=== PATIENT | female | born 1975 | race Caucasian/White ===

== ENCOUNTER 2022-06-05 18:35 | Emergency (ER) | payer OTHER, MEDICAID, SELFPAY ==
[2022-06-05 18:50] VITALS: PULSE 95; O2SAT 99
[2022-06-05 18:51] VITALS: BP 140/83; PULSE 97; O2SAT 99
[2022-06-05 18:53] VITALS: BP 140/83; PULSE 80; RESP 19; TEMP 36.8; O2SAT 95; BMI 21.4
[2022-06-05 19:00] VITALS: PULSE 86; O2SAT 97
[2022-06-05 19:01] VITALS: BP 125/70; PULSE 87; O2SAT 98
--- NOTE | 2022-06-05 19:01 | ED.UPPEXIN ---
HPI - Extremity Injury (Upper) <Conor Frazier PA-C - Last Filed: 06/05/22 19:34> General Chief Complaint: Extremity Injury, Upper Stated Complaint: lt humeral fx Time Seen by Provider: 06/05/22 18:47 Source: patient Mode of arrival: Ambulatory History of Present Illness HPI narrative: This is the 47 year old female presents to the emergency department due to left upper extremity pain onset earlier this afternoon. Patient states that she was hiking and tripped and fell and slid 20 ft down a hill. She was seen by a previous provider for your ordered left shoulder x-rays and directed her to come to the emergency department. She denies any numbness in her left upper extremity and did not injure any other area of her body during the fall. She would not hit her head or lose consciousness. Related Data Previous Rx's Medication Instructions Recorded oxycodone 5 mg capsule 5 mg PO Q6H PRN pain 10 days #30 06/05/22 caps oxycodone 5 mg capsule 5 mg PO Q8H PRN pain 10 days #30 06/05/22 caps Allergies Allergy/AdvReac Type Severity Reaction Status Date / Time latex Allergy Mild Rash Verified 06/05/22 15:49 Review of Systems <Conor Frazier PA-C - Last Filed: 06/05/22 19:34> Review of Systems Narrative: GENERAL: Denies chills, fatigue, malaise, fever, sweats. HEENT: Denies sinus pain, ear pain, sore throat, difficulty swallowing, dizziness. RESPIRATORY: Denies dyspnea, cough, wheezing, hemoptysis, sputum. CARDIOVASCULAR: Denies chest pain, palpitations, orthopnea, edema, GASTROINTESTINAL: Denies nausea, vomiting, abdominal pain, diarrhea, constipation, melena. : Denies dysuria, frequency, incontinence, hematuria, urinary retention. MUSCULOSKELETAL: Left upper extremity pain SKIN: Denies rash, skin lesions, or other NEUROLOGIC: Denies weakness, headache, numbness, change in speech, confusion, seizures, incoordination. PSYCHIATRIC: No concerning psychosocial issues. 12 point review of systems is negative except for those stated above Patient History <Conor Frazier PA-C - Last Filed: 06/05/22 19:34> Social History Smoking Status: Former smoker Smoking Status: Former smoker tobacco type: cigarettes alcohol intake frequency: a few times a week Substance Use Type: does not use Exam <VASYL Baumann Last Filed: 06/05/22 19:34> Narrative Exam Narrative: GENERAL: Well-developed patient, in mild distress. HEAD: Atraumatic. Normocephalic. EYES: Pupils equal round and reactive. Extraocular motions intact. No scleral icterus. No injection or drainage. ENT: Nose without bleeding, purulent drainage. Throat without erythema, tonsillar hypertrophy or exudate. Airway patent. NECK: Trachea midline. Non tender CARDIOVASCULAR: Regular rate and rhythm without murmurs, gallops, or rubs. RESPIRATORY: Clear to auscultation. Breath sounds equal bilaterally. No wheezes, rales, or rhonchi. GASTROINTESTINAL: Abdomen soft, non-tender, nondistended. EXTREMITIES: Patient's left upper extremity is in a sling. She is tenderness to palpation to the left shoulder with no obvious deformity. She is neurovascularly intact distally. 2+ radial pulse, full range of motion at the distal hand and fingers BACK: Nontender without deformity or crepitance. No flank tenderness. NEURO: AOx3. SKIN: No rash or erythema of visible areas Initial Vital Signs Initial Vital Signs: Vital Signs Pulse Rate 95 H 06/05/22 18:50 Pulse Oximetry 99 06/05/22 18:50 <Modesto Thomas DO - Last Filed: 06/05/22 20:24> Initial Vital Signs Initial Vital Signs: Vital Signs Pulse Rate 95 H 06/05/22 18:50 Pulse Oximetry 99 06/05/22 18:50 Course <Conor Frazier PA-C - Last Filed: 06/05/22 19:34> Orders Ordered: ED Orders 06/05/22 18:58 Consult to IV TECHNICIAN - [place] [facility] Stat Vital Signs Vital signs: Vital Signs - 8 hr 06/05/22 18:53 06/05/22 19:19 06/05/22 18:50 Temperature 98.2 F Pulse Rate 80 95 H Pulse Rate [Left Radial] 85 Respiratory Rate 19 Blood Pressure 140/83 Pulse Oximetry 95 99 Oxygen Delivery Method Room Air 06/05/22 18:51 06/05/22 18:51 06/05/22 19:00 Temperature Pulse Rate 97 H 86 Pulse Rate [Left Radial] Respiratory Rate Blood Pressure 140/83 Pulse Oximetry 99 97 Oxygen Delivery Method 06/05/22 19:01 06/05/22 19:01 Temperature Pulse Rate 87 Pulse Rate [Left Radial] Respiratory Rate Blood Pressure 125/70 Pulse Oximetry 98 Oxygen Delivery Method <Modesto Thomas DO - Last Filed: 06/05/22 20:24> Orders Ordered: ED Orders 06/05/22 18:58 Consult to IV TECHNICIAN - [place] [facility] Stat Vital Signs Vital signs: Vital Signs - 8 hr 06/05/22 18:53 06/05/22 19:19 06/05/22 18:50 Temperature 98.2 F Pulse Rate 80 95 H Pulse Rate [Left Radial] 85 Respiratory Rate 19 Blood Pressure 140/83 Pulse Oximetry 95 99 Oxygen Delivery Method Room Air 06/05/22 18:51 06/05/22 18:51 06/05/22 19:00 Temperature Pulse Rate 97 H 86 Pulse Rate [Left Radial] Respiratory Rate Blood Pressure 140/83 Pulse Oximetry 99 97 Oxygen Delivery Method 06/05/22 19:01 06/05/22 19:01 Temperature Pulse Rate 87 Pulse Rate [Left Radial] Respiratory Rate Blood Pressure 125/70 Pulse Oximetry 98 Oxygen Delivery Method MDM - Extremity Injury (Upper) <Conor Frazier PA-C - Last Filed: 06/05/22 19:34> Imaging Data Extremity x-ray #1: Radiologist's Impression: [facility] Marsha Shearer ReportSigned Patient: Kelsie OrtizMR#: [id number]: 1975Acct:[id number]/Sex: 47 / FDate of Service: 06/05/22Loc: VIJAYSAccession Number: [id number] Procedure: XR shoulder LT min 2V Ordering Provider: Patt Navarro P.A-C PROCEDURE: XR SHOULDER LT MIN 2V INDICATIONS: left shoulder and elbow pain TECHNIQUE: 3 views of the shoulder were acquired. COMPARISON: None. FINDINGS: Bones: Proximal left humerus fracture which extends through the greater tuberosity. Soft tissues: No suspicious soft tissue calcifications. IMPRESSION: Proximal left humerus fracture. Dictated by: Kiera Hall MD, PhD on 06/05/2022 at 15:34 Approved by: Kiera Hall MD, PhD on 06/05/2022 at 15:37 Extremity x-ray #2: Radiologist's Impression: Kelsie Ortiz??47??F??1975 ? Allergy/Adv: latex Close Shoulder X-Ray (Signed) Kiera Hall - 06/05/22 Elbow X-Ray (Signed) Kiera Hall - 06/05/22 Launch?[facility] ,? XRay Report Signed Patient: Kelsie Ortiz MR#: [id number] : 1975 Acct:[id number] Age/Sex: 47 / F Date of Service: 06/05/22 Loc: [facility] Accession Number: [id number] ?? Procedure: XR elbow LT min 3V Ordering Provider: Patt Navarro P.A-C PROCEDURE:? XR ELBOW LT MIN 3V ? INDICATIONS:? left shoulder and elbow pain ? TECHNIQUE:? 3 views of the elbow were acquired.? ? COMPARISON:? None. ? FINDINGS:? ? Bones:? No fractures or dislocations.? No suspicious bony lesions.? ? Soft tissues:? No elbow joint effusion.? No suspicious soft tissue calcifications.? ? ? IMPRESSION:? No osseous lesion. If symptoms and/or clinical suspicion for pathology persists, further assessment with advanced imaging (e.g. CT, MRI or bone scan) should be considered. ? ? Dictated by: Kiera Hall MD, PhD on 06/05/2022 at 15:33 ? ? Approved by: Kiera Hall MD, PhD on 06/05/2022 at 15:34 ? MDM Narrative Medical decision making narrative: MDM * differential diagnosis includes but not limited to humerus fracture, soft tissue injury tendon injury, neurovascular injury * Prior records reviewed: Patient was seen by a previous provider and evaluated for the left shoulder pain. Previous provider ordered x-rays and directed her to come to this emergency department * My lab interpretation: None * My imgaing interpretation: Left shoulder x-ray shows a proximal humerus fracture * Clinical Decision Rules/Scores evaluated: None * Independent discussions with: None ED Course: This is a 47-year-old female presents to the emergency department after a fall resulting in left proximal humerus fracture. She was neurovascularly intact throughout and was sitting relatively comfortable during the exam. Patient was already placed in the sling and will be instructed to follow up with Dr. Eden, the on-call orthopedist, for further evaluation and management patient will prescribed oxycodone for pain management. Shared Decision Making: Discussed plan with patient who is comfortable with the plan. Social Considerations: None Disposition: Discharged to home Discharge Plan Departure Patient Disposition: Home Clinical Impression: Fracture of proximal end of left humerus Instructions: DI for Humeral Fracture Activity Restrictions/Additional Instructions: Thank you for coming to the [facility] Emergency Department today. As we discussed you have injured the proximal end of your humerus, this is the area closer to your shoulder. Please keep your arm in the sling and do not bear weight through it until you are able to follow up with our orthopedist, Dr. Eden. I recommend Tylenol as needed for the pain but you may use oxycodone when the Tylenol is not enough. I hope you feel better soon. Prescriptions: New oxycodone 5 mg capsule 5 mg PO Q6H PRN (Reason: pain) 10 Days Qty: 30 0RF oxycodone 5 mg capsule 5 mg PO Q8H PRN (Reason: pain) 10 Days Qty: 30 0RF Referrals: Chelsi Eden MD [Physician] - (f/u proximal humerus fracture ) Patt Navarro PA-C [Primary Care Provider] - Stand Alone Forms: Patient Portal/API <Modesto Thomas, DO - Last Filed: 06/05/22 20:24> Cosign ED Attending Cosbenature Attestation: Dr Thomas Co-Sign Statement: I was available for consultation during this patient's emergency department visit. This chart is signed by myself for administrative purposes only. I did not have direct contact with this patient during this visit. They were seen independently by the APC.
[2022-06-05 19:19] VITALS: PULSE 85
== END 2022-06-05 19:26 | disposition home or self-care (01) ==
PROVIDERS: Emergency Provider Physician Assistant Medical; PCP Physician Assistant
DX: S42.202A Unspecified fracture of upper end of left humerus, initial encounter for closed fracture (principal); W17.81XA Fall down embankment (hill), initial encounter; Y93.01 Activity, walking, marching and hiking
CPT/HCPCS: 99281